=== PATIENT | female | born 1995 | race Caucasian/White ===

== ENCOUNTER 2018-12-04 19:58 | Emergency (ER) | payer OTHER ==
[~2018-12-04] VITALS: Ht 154.9 cm; Wt 80.9 kg
[2018-12-04 19:59] VITALS: Ht 154.9 cm; Wt 80.9 kg
[2018-12-04 22:14] VITALS: BP 128/72
== END 2018-12-04 22:14 | disposition home or self-care (01) ==
LOC: ED 19:58
DX: T22.212A Burn of second degree of left forearm, initial encounter (principal); T31.0 Burns involving less than 10% of body surface; X17.XXXA Contact with hot engines, machinery and tools, initial encounter; Y93.89 Activity, other specified; Y92.89 Other specified places as the place of occurrence of the external cause; Y99.8 Other external cause status